=== PATIENT | female | born 1955 | race Two or more races ===

== ENCOUNTER 2017-10-04 08:18 | Outpatient (CLI) | payer OTHER ==
[~2017-10-04 08:18] MED LIST: CATAFLAM50 MG PO; TOBRADEX EYE DR10 ML OP; VISTARIL25 MG PO
== END 2017-10-04 08:25 | disposition home or self-care (01) ==
LOC: SONOGRAMA 08:18 → MAMO-SONO 11-01 09:15
DX: R10.2 Pelvic and perineal pain (principal); D25.9 Leiomyoma of uterus, unspecified

== ENCOUNTER 2017-11-01 09:09 | Outpatient (CLI) | payer OTHER | END 2017-11-01 09:12 | disposition home or self-care (01) | LOC: MAMO-SONO 09:09 | DX: Z12.31 Encounter for screening mammogram for malignant neoplasm of breast (principal) ==

== ENCOUNTER 2018-03-11 21:01 | Emergency (ER) | payer OTHER ==
[~2018-03-11] VITALS: Ht 152.4 cm; Wt 53.1 kg
[2018-03-12] MEDS ORDERED: LEVAQUIN500 MG PO (06:08)
[2018-03-12] MEDS ORDERED: ZYNCOF 20-400120 ML PO (06:08)
[2018-03-12] MEDS ORDERED: ALBUTEROL2.5 MG/3 M IH (06:08)
[2018-03-12] MEDS ORDERED: FLOVENT HFA10.6 GM IH (06:08)
== END 2018-03-12 06:31 ==
LOC: ER 21:01
DX: J45.998 Other asthma (principal)

== ENCOUNTER 2018-09-02 09:23 | Outpatient (CLI) | payer OTHER ==
[~2018-09-02 09:23] MED LIST changes: +ALBUTEROL2.5 MG/3 M IH; +FLOVENT HFA10.6 GM IH; +LEVAQUIN500 MG PO; +ZYNCOF 20-400120 ML PO
== END 2018-09-02 10:49 | disposition home or self-care (01) ==
LOC: EKG 09:23
DX: I10 Essential (primary) hypertension (principal)

== ENCOUNTER 2018-10-07 10:23 | Emergency (ER) | payer OTHER ==
[~2018-10-07] VITALS: Ht 149.9 cm; Wt 52.2 kg
== END 2018-10-07 13:48 | disposition home or self-care (01) ==
LOC: ER 10:23
DX: R53.81 Other malaise (principal)

== ENCOUNTER 2018-11-04 08:22 | Emergency (ER) | payer OTHER ==
[~2018-11-04] VITALS: Ht 149.9 cm; Wt 52.2 kg
[2018-11-04] MEDS ORDERED: PROTONIX40 MG (08:30)
== END 2018-11-04 10:21 | disposition home or self-care (01) ==
LOC: ER 08:22
DX: B34.9 Viral infection, unspecified (principal)

== ENCOUNTER 2018-11-11 08:19 | Outpatient (CLI) | payer OTHER ==
[~2018-11-11 08:19] MED LIST changes: +PROTONIX40 MG
== END 2018-11-11 08:31 | disposition home or self-care (01) ==
LOC: MAMO-SONO 08:19
DX: Z12.31 Encounter for screening mammogram for malignant neoplasm of breast (principal); Z87.898 Personal history of other specified conditions; N60.11 Diffuse cystic mastopathy of right breast; N60.12 Diffuse cystic mastopathy of left breast

== ENCOUNTER 2019-02-05 08:49 | Outpatient (CLI) | payer OTHER | END 2019-02-05 09:03 | disposition home or self-care (01) | LOC: RAD 08:49 | DX: M12.88 Other specific arthropathies, not elsewhere classified, other specified site (principal); M19.012 Primary osteoarthritis, left shoulder; M19.011 Primary osteoarthritis, right shoulder; M46.42 Discitis, unspecified, cervical region ==

== ENCOUNTER → 2019-11-25 | Outpatient (CLI) | payer OTHER | END | disposition home or self-care (01) | LOC: MAMO-SONO 13:22 | PROVIDERS: ATTEND Obstetrics & Gynecology Maternal & Fetal Medicine | DX: Z12.31 Encounter for screening mammogram for malignant neoplasm of breast (principal); N63.10 Unspecified lump in the right breast, unspecified quadrant; N63.20 Unspecified lump in the left breast, unspecified quadrant; N64.4 Mastodynia; N60.11 Diffuse cystic mastopathy of right breast ==

== ENCOUNTER 2020-01-11 10:11 | Outpatient (CLI) | payer OTHER | END 2020-01-11 10:22 | disposition home or self-care (01) | LOC: RAD 10:11 | PROVIDERS: ATTEND Internal Medicine Cardiovascular Disease | DX: M46.47 Discitis, unspecified, lumbosacral region (principal) ==

== ENCOUNTER → 2020-01-11 11:18 | Outpatient (CLI) | payer OTHER | END | disposition home or self-care (01) | LOC: LAB 11:18 → EKG 11:18 | PROVIDERS: ATTEND Internal Medicine Cardiovascular Disease | DX: I10 Essential (primary) hypertension (principal) ==

== ENCOUNTER 2020-01-15 09:37 | Outpatient (CLI) | payer OTHER | END 2020-01-15 09:49 | disposition home or self-care (01) | LOC: RAD 09:37 | PROVIDERS: ATTEND Internal Medicine Cardiovascular Disease | DX: M46.47 Discitis, unspecified, lumbosacral region (principal); M12.89 Other specific arthropathies, not elsewhere classified, multiple sites ==

== ENCOUNTER 2020-02-11 02:44 | Emergency (ER) | payer OTHER ==
[~2020-02-11] VITALS: Ht 144.8 cm; Wt 52.2 kg
[2020-02-11] MEDS ORDERED: XANAX0.25 MG (03:06)
[2020-02-11] MEDS ORDERED: XANAX0.25 MG PO (03:52)
[2020-02-11] MEDS ORDERED: TOPROL XL25 M1 PO (03:52)
== END 2020-02-11 04:01 | disposition home or self-care (01) ==
LOC: ER 02:44
DX: R00.2 Palpitations (principal); F43.8 Other reactions to severe stress; F41.8 Other specified anxiety disorders

== ENCOUNTER 2020-06-09 10:43 | Outpatient (CLI) | payer OTHER ==
[~2020-06-09 10:43] MED LIST changes: +TOPROL XL25 M1 PO; +XANAX0.25 MG; +XANAX0.25 MG PO
== END 2020-06-09 10:58 | disposition home or self-care (01) ==
LOC: TOM 10:43
PROVIDERS: ATTEND Internal Medicine Cardiovascular Disease
DX: G93.89 Other specified disorders of brain (principal); G43.909 Migraine, unspecified, not intractable, without status migrainosus

== ENCOUNTER 2020-06-15 10:29 | Outpatient (CLI) | payer OTHER | END 2020-06-15 10:44 | disposition home or self-care (01) | LOC: NUCLEAR 10:29 | PROVIDERS: ATTEND Internal Medicine Cardiovascular Disease | DX: R07.9 Chest pain, unspecified (principal); I49.3 Ventricular premature depolarization ==

== ENCOUNTER 2020-06-17 08:24 | Outpatient (CLI) | payer OTHER | END 2020-06-17 09:12 | disposition home or self-care (01) | LOC: NUCLEAR 08:24 | PROVIDERS: ATTEND Internal Medicine Cardiovascular Disease | DX: I25.89 Other forms of chronic ischemic heart disease (principal); R07.89 Other chest pain ==

== ENCOUNTER 2020-07-15 09:21 | Outpatient (CLI) | payer OTHER | END 2020-07-15 09:34 | disposition home or self-care (01) | LOC: TOM 09:21 | PROVIDERS: ATTEND Internal Medicine Cardiovascular Disease | DX: Q89.8 Other specified congenital malformations (principal) ==

== ENCOUNTER 2020-11-18 09:18 | Outpatient (CLI) | payer OTHER | END 2020-11-18 09:28 | disposition home or self-care (01) | LOC: RAD 09:18 | PROVIDERS: ATTEND Internal Medicine Cardiovascular Disease | DX: R07.89 Other chest pain (principal) ==

== ENCOUNTER 2020-11-28 11:29 | Outpatient (CLI) | payer OTHER | END 2020-11-28 11:40 | disposition home or self-care (01) | LOC: MAMO-SONO 11:29 | PROVIDERS: ATTEND Internal Medicine Cardiovascular Disease | DX: N63.11 Unspecified lump in the right breast, upper outer quadrant (principal); Z12.31 Encounter for screening mammogram for malignant neoplasm of breast ==

== ENCOUNTER 2020-12-05 10:33 | Outpatient (CLI) | payer OTHER | END 2020-12-05 10:35 | disposition home or self-care (01) | LOC: RAD 10:33 | PROVIDERS: ATTEND Internal Medicine Cardiovascular Disease | DX: M25.872 Other specified joint disorders, left ankle and foot (principal); M12.871 Other specific arthropathies, not elsewhere classified, right ankle and foot ==

== ENCOUNTER 2021-02-01 09:23 | Outpatient (CLI) | payer OTHER | END 2021-02-01 09:37 | disposition home or self-care (01) | LOC: SONOGRAMA 09:23 → MAMO-SONO 10:15 | PROVIDERS: ATTEND Internal Medicine Cardiovascular Disease | DX: M72.2 Plantar fascial fibromatosis (principal); M12.89 Other specific arthropathies, not elsewhere classified, multiple sites ==

== ENCOUNTER 2021-03-06 08:36 | Outpatient (CLI) | payer OTHER | END 2021-03-06 08:38 | disposition home or self-care (01) | LOC: RAD 08:36 | PROVIDERS: ATTEND Internal Medicine Cardiovascular Disease | DX: M41.86 Other forms of scoliosis, lumbar region (principal); M46.47 Discitis, unspecified, lumbosacral region; M12.89 Other specific arthropathies, not elsewhere classified, multiple sites ==

== ENCOUNTER 2021-07-03 09:07 | Outpatient (CLI) | payer OTHER | END 2021-07-03 09:09 | disposition home or self-care (01) | LOC: NUCLEAR 09:07 | PROVIDERS: ATTEND Internal Medicine Cardiovascular Disease | DX: I11.9 Hypertensive heart disease without heart failure (principal) ==

== ENCOUNTER 2021-07-18 09:28 | Outpatient (CLI) | payer OTHER | END 2021-07-18 09:50 | disposition home or self-care (01) | LOC: LAB 09:28 | PROVIDERS: ATTEND Internal Medicine Cardiovascular Disease | DX: K76.81 Hepatopulmonary syndrome (principal) ==

== ENCOUNTER 2021-07-19 08:00 | Outpatient (CLI) | payer OTHER | END 2021-07-19 08:10 | disposition home or self-care (01) | LOC: TOM 08:00 | PROVIDERS: ATTEND Internal Medicine Cardiovascular Disease | DX: I28.0 Arteriovenous fistula of pulmonary vessels (principal) ==

== ENCOUNTER 2021-12-14 09:04 | Outpatient (CLI) | payer OTHER | END 2021-12-14 13:05 | disposition home or self-care (01) | LOC: MAMO-SONO 09:04 | PROVIDERS: ATTEND Obstetrics & Gynecology Maternal & Fetal Medicine | DX: Z12.31 Encounter for screening mammogram for malignant neoplasm of breast (principal); N63.0 Unspecified lump in unspecified breast; N64.4 Mastodynia; N60.11 Diffuse cystic mastopathy of right breast ==

== ENCOUNTER 2021-12-15 08:12 | Outpatient (CLI) | payer OTHER | END 2021-12-15 08:13 | disposition home or self-care (01) | LOC: LAB 08:12 | PROVIDERS: ATTEND Internal Medicine | DX: U07.1 COVID-19 (principal); B34.1 Enterovirus infection, unspecified ==

== ENCOUNTER 2022-06-29 05:50 | Day surgery (SDC) | payer OTHER ==
[~2022-06-29] VITALS: Ht 149.9 cm; Wt 45.4 kg
[~2022-06-29 05:50] MED LIST changes: +TENORMIN100 M1 PO
[2022-06-29] MEDS ORDERED: CEPHALEXIN500 MG PO (11:28)
[2022-06-29] MEDS ORDERED: CILOXAN5 ML OTIC (11:29)
== END 2022-06-29 13:45 | disposition home or self-care (01) ==
LOC: CIR.AMB 05:50
PROVIDERS: ATTEND Otolaryngology Otology & Neurotology
DX: H72.02 Central perforation of tympanic membrane, left ear (principal); H73.812 Atrophic flaccid tympanic membrane, left ear; H90.12 Conductive hearing loss, unilateral, left ear, with unrestricted hearing on the contralateral side; I10 Essential (primary) hypertension; Z87.891 Personal history of nicotine dependence

== ENCOUNTER → 2022-09-25 | Outpatient (CLI) | payer OTHER ==
[~2022-09-25] MED LIST changes: +CEPHALEXIN500 MG PO; +CILOXAN5 ML OTIC
== END | disposition home or self-care (01) ==
LOC: LAB 08:53
PROVIDERS: ATTEND Internal Medicine Cardiovascular Disease
DX: I10 Essential (primary) hypertension (principal)

== ENCOUNTER 2022-12-18 09:36 | Outpatient (CLI) | payer OTHER | END 2022-12-18 09:50 | disposition home or self-care (01) | LOC: MAMO-SONO 09:36 | PROVIDERS: ATTEND Obstetrics & Gynecology Maternal & Fetal Medicine | DX: Z12.31 Encounter for screening mammogram for malignant neoplasm of breast (principal); N63.0 Unspecified lump in unspecified breast; N64.4 Mastodynia; N60.11 Diffuse cystic mastopathy of right breast ==

== ENCOUNTER 2023-05-17 12:38 | Outpatient (CLI) | payer OTHER | END 2023-05-17 12:41 | disposition home or self-care (01) | LOC: NUCLEAR 12:38 | PROVIDERS: ATTEND Internal Medicine | DX: M81.0 Age-related osteoporosis without current pathological fracture (principal) ==

== ENCOUNTER 2023-12-25 09:32 | Outpatient (CLI) | payer OTHER | END 2023-12-26 08:22 | disposition home or self-care (01) | LOC: MAMO-SONO 09:32 | PROVIDERS: ATTEND Obstetrics & Gynecology Maternal & Fetal Medicine | DX: N63 Unspecified lump in breast (principal); Z12.31 Encounter for screening mammogram for malignant neoplasm of breast; N64.4 Mastodynia; N60.11 Diffuse cystic mastopathy of right breast; N60.29 Fibroadenosis of unspecified breast ==

== ENCOUNTER 2024-09-17 14:31 | Emergency (ER) | payer OTHER ==
[~2024-09-17] VITALS: Ht 147.3 cm; Wt 51.3 kg
[2024-09-17 17:17] LABS: BASO % 0.2 % (0.1-1.2); EOS # 0.02 (0.04-0.54); EOS % 0.4 % (0.7-7.0); HEMATOCRIT 39.6 % (34.1-44.9); HEMOGLOBIN 13.7 g/dL (11.2-15.7); LYMPH # 1.19 (1.18-3.74); LYMPH % 24.3 % (19.3-53.1); MEAN CORPUSCULAR HEMOGLOBIN 30.7 pg (25.6-32.2); MONO # 0.73 (0.24-0.82); NEUT # 2.93 (1.56-6.13); NEUT % 59.8 % (34.0-71.1); PLATELET COUNT 154 K/uL (163-369); RED BLOOD COUNT 4.46 M/uL (3.93-5.22); RED CELL DISTRIBUTION WIDTH 12.5 % (11.6-14.4)
[2024-09-17 17:25] LABS: MONO % 14.9 % (4.7-12.5)
[2024-09-17] MEDS ORDERED: LEVALBUTEROL HCL 1.25 MG/3 ML SOLUTION IH SCH (17:45)
[2024-09-17 17:46] LABS: INFLUENZA A AG NEGATIVE (NEGATIVE)
[2024-09-17 17:56] LABS: COVID-19 AG POSITIVE (NEGATIVE)
[2024-09-17] MEDS ORDERED: LEVALBUTEROL HCL 0.63 MG/3 ML SOLUTION IH ONE (18:05)
[2024-09-17] MEDS ORDERED: ACETAMINOPHEN500 M1 PO (20:19)
[2024-09-17] MEDS ORDERED: PAXLOVID 150-11 EAC1 PO (20:19)
[2024-09-17] MEDS ORDERED: GILTUSS COUGH-118 M1 PO (20:19)
== END 2024-09-17 21:11 | disposition home or self-care (01) ==
LOC: ER 17:48
PROVIDERS: Preventive Medicine Public Health & General Preventive Medicine
DX: U07.1 COVID-19 (principal); I10 Essential (primary) hypertension; E78.49 Other hyperlipidemia

== ENCOUNTER 2024-12-30 10:02 | Outpatient (CLI) | payer OTHER ==
[~2024-12-30 10:02] MED LIST changes: +ACETAMINOPHEN500 M1 PO; +GILTUSS COUGH-118 M1 PO; +PAXLOVID 150-11 EAC1 PO
== END 2024-12-30 10:04 | disposition home or self-care (01) ==
LOC: MAMO-SONO 10:02
PROVIDERS: ATTEND Internal Medicine
DX: N60.29 Fibroadenosis of unspecified breast (principal); Z12.31 Encounter for screening mammogram for malignant neoplasm of breast

== ENCOUNTER 2025-04-16 08:57 | Emergency (ER) | payer OTHER ==
[~2025-04-16] VITALS: Ht 147.3 cm; Wt 50.8 kg
[2025-04-16] MEDS ORDERED: CRESTOR40 MG PO (09:07)
[2025-04-16] MEDS ORDERED: CETIRIZINE HCL 5 MG/5 ML ML PO ONE (09:30)
[2025-04-16] MEDS ORDERED: KETOROLAC TROMETHAMINE 10 MG TABLET PO ONE (09:30)
[2025-04-16 10:26] LABS: BASO % 0.3 % (0.1-1.2); EOS # 0.18 (0.04-0.54); EOS % 2.1 % (0.7-7.0); LYMPH # 0.69 (1.18-3.74); LYMPH % 7.9 % (19.3-53.1); MEAN PLATELET VOLUME 11.20 fl (9.4-12.4); MONO # 0.61 (0.24-0.82); MONO % 7.0 % (4.7-12.5); NEUT # 7.16 (1.56-6.13); NEUT % 82.4 % (34.0-71.1); RED CELL DISTRIBUTION WIDTH 12.3 % (11.6-14.4)
[2025-04-16 11:11] LABS: COVID-19 AG NEGATIVE (NEGATIVE)
[2025-04-16] MEDS ORDERED: BENZONATATE200 M1 PO (11:22)
== END 2025-04-16 12:19 | disposition home or self-care (01) ==
LOC: ER 08:58
PROVIDERS: General Practice
DX: M79.18 Myalgia, other site (principal); R42 Dizziness and giddiness; R09.81 Nasal congestion; I49.8 Other specified cardiac arrhythmias; Z20.822 Contact with and (suspected) exposure to COVID-19